=== PATIENT | male | born 1940 ===

== ENCOUNTER 2017-08-16 09:43 | Day surgery (SDC) | payer MEDICARE, OTHER ==
[2017-08-15 14:32] VITALS: BMI 25.0
[2017-08-16 10:23] LABS: BASO # 0.03 K/mm3 (0.0-2.0); BASO % 0.7 % (0.0-3.0); EOS # 0.1 (0.0-0.7); EOS % 2.4 % (1.5-5.0); GRAN % 47.5 % (50.0-68.0); HEMOGLOBIN 12.6 g/dL (14.0-18.0); LYMPH # 1.5 (1.2-3.4); LYMPH % 36.3 % (22.0-35.0); MEAN CELL VOLUME 93.5 fl (80.0-105.0); MEAN CORPUSCULAR HEMOGLOBIN 31.7 pg (25.0-35.0); MEAN CORPUSCULAR HGB CONC 33.9 g/dl (31.0-37.0); MEAN PLATELET VOLUME 10.1 fl (7.0-11.0); MONO # 0.6 (0.1-0.6); MONO % 13.1 % (1.0-6.0); RBC 3.98 10^6/uL (3.5-6.1); RED CELL DISTRIBUTION WIDTH 12.2 % (11.5-14.5); WHITE BLOOD COUNT 4.2 10^3/ul (4.5-11.0)
[2017-08-16 10:32] VITALS: RESP 18
[2017-08-16 10:32] LABS: CALCIUM 9.1 mg/dL (8.4-10.5); GFR AFRICAN-AMERICAN > 60; GFR NON-AFRICAN AMERICAN > 60; HDL CHOLESTEROL 34 mg/dL (29-60)
[2017-08-16 10:36] LABS: BLOOD UREA NITROGEN 10 mg/dL (7-21)
[2017-08-16 10:43] LABS: LDL CHOLESTEROL 50 mg/dL (0-129)
[2017-08-16 11:05] LABS: INR 0.99 (0.93-1.08); PARTIAL THROMBOPLASTIN TIME 28.5 Seconds (25.1-36.5); PROTHROMBIN TIME 11.4 SECONDS (9.4-12.5)
[2017-08-16] MEDS ORDERED: Iodixanol 320 MG/ML 100 ML BOTTLE IV ONE (12:43)
[2017-08-16] MEDS ORDERED: Lidocaine 2% Inj (20ml) ONE (12:43)
[2017-08-16] MEDS ORDERED: Iohexol 350mgl/ml 50 ML ONE (12:43)
[2017-08-16] MEDS ORDERED: Iodixanol 320 MG/ML 200 ML BOTTLE IV ONE (12:43)
[2017-08-16] MEDS ORDERED: Nitroglycerin 50mg in D5W 0 MG/0 ML BOTTLE IV ONE (12:44)
[2017-08-16] MEDS ORDERED: HEPARIN SODIUM/NS 2,000 ML IV ONE (12:44)
[2017-08-16] MEDS ORDERED: Midazolam 2 MG/2 ML VIAL ONE (12:51)
--- NOTE | 2017-08-16 13:27 | CARD ---
APPROVED REPORT EKG Measurement Heart [id number] <Conclusion> Normal sinus rhythm with sinus arrhythmia Left axis deviation PRWP
[2017-08-16] MEDS ORDERED: Sodium Chloride 0.45% 1,000 ML IV SCH (13:30)
[2017-08-16 14:47] VITALS: TEMP 98; O2SAT 97
[2017-08-16 16:40] VITALS: BP 145/70; PULSE 68
--- NOTE | 2017-08-22 06:16 | CARD ---
APPROVED REPORT Procedure(s) performed: Left Heart Catheterization Complete Heart Catheterization Left Ventriculogram Aortogram HISTORY 54%. (EF Method: RADIONUCLIDE), peripheral vascular disease, hypertension , dyslipidemia . INDICATION The indication(s) include : positive stress test, stable angina (Silent CT(no time period)), chest pain, dyspnea. CASE TECHNIQUE The patient was brought electively to the Cardiac Catheterization Laboratory in a fasting state and was prepped and draped in a sterile manner. The was infiltrated with 2% Lidocaine subcutaneous without difficulty. Coronary angiography was performed using coronary diagnostic catheters. The left coronary system was accessed and visualized with a Diagnostic catheter. The right coronary system was accessed and visualized with a Diagnostic catheter. The left ventricle was accessed and visualized with a Diagnostic catheter. Left ventricular/Aortic Valve gradient assessed on pullback. Left ventriculogram was performed in CARDONA projection. An aortogram of the ascending aorta was performed. Closure device was deployed with a 6 Fr Angio-Seal without any complications. Vessel Analysis The patient's coronary anatomy is right dominant. The left main coronary artery is a medium size vessel without significant stenosis. The left main bifurcates to the left anterior descending and circumflex. The left anterior descending artery is a medium size vessel with intimal irregularities. There is a 30% stenosis in the proximal segment. 50% distal. The first diagonal branch is a medium size vessel . There is a 50% stenosis . The circumflex artery is a medium size vessel . There is a 30% stenosis in the mid segment. The right coronary artery is a medium size vessel . There is a 30% stenosis in the mid segment. Left Ventricle The left ventricle is Normal in size with normal contractility. There was no cardiomyopathy. The left ventricular ejection fraction is estimated to be 55%. 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 Conclusion Non critical CAD. Normal left ventricular function. Mildly dilated accending aorta. Recommendations Aggressive Medical TherapyCardiac Risk Reduction Program Medical Therapy CTA or aorta.
== END 2017-08-16 17:00 | disposition home or self-care (01) ==
LOC: CATH 09:43
PROVIDERS: ATTEND Internal Medicine Cardiovascular Disease
DX: I25.10 Atherosclerotic heart disease of native coronary artery without angina pectoris (principal); I11.9 Hypertensive heart disease without heart failure; J44.9 Chronic obstructive pulmonary disease, unspecified; Z87.891 Personal history of nicotine dependence; R42 Dizziness and giddiness; E78.5 Hyperlipidemia, unspecified; C61 Malignant neoplasm of prostate; I73.9 Peripheral vascular disease, unspecified
CPT/HCPCS: 36415; 80048; 80061; 85025; 85610; 85730; 86850; 86900; 93005; 93458; 93567; 99152; C1713; C1760; C1769; C1887 ×2; J1644; J2250; J7030 ×2; Q9967